=== PATIENT | female | born 1935 | race Caucasian/White ===

== ENCOUNTER 2017-08-23 20:39 | Inpatient (IN) | payer MEDICARE, MEDICAID ==
[~2017-08-23] VITALS: Ht 165.1 cm; Wt 70.3 kg
[2017-08-23] MEDS ORDERED: RISP.5 PO (20:46)
[2017-08-23] MEDS ORDERED: QUET25TA PO ×2 (20:46→20:54)
[2017-08-23] MEDS ORDERED: MEMA5 PO (20:46)
[2017-08-23] MEDS ORDERED: DSS100 PO (20:54)
[2017-08-23] MEDS ORDERED: TRAM50TA4 PO (20:54)
[2017-08-23] MEDS ORDERED: LORA0.5T2 PO (20:54)
[2017-08-23] MEDS ORDERED: QUET100T PO (20:54)
[2017-08-23] MEDS ORDERED: FERR-89 PO (20:54)
[2017-08-23] MEDS ORDERED: DICL2100G TP (20:54)
[2017-08-23] MEDS ORDERED: LOSA50TA37 PO (20:54)
[2017-08-23] MEDS ORDERED: PANT40TA25 PO (20:54)
[2017-08-23] MEDS ORDERED: CALC1TAB15 PO (20:54)
[2017-08-23] MEDS ORDERED: MELO-107 PO (20:54)
[2017-08-23] MEDS ORDERED: MEGE400O4 PO (20:54)
[2017-08-23] MEDS ORDERED: MELA3TAB PO (20:54)
[2017-08-23] MEDS ORDERED: ASCO500 PO (20:54)
[2017-08-23] MEDS ORDERED: ATEN50TA PO (20:54)
[2017-08-23] MEDS ORDERED: BACL10TA PO (20:54)
[2017-08-23 22:09] LABS: BASOPHILS % (AUTO) 0.9 % (0.0-2.0); EOSINOPHILS % (AUTO) 1.6 % (1.0-6.0); HEMATOCRIT 29.4 % (36-46); HEMOGLOBIN 10.1 g/dL (12.0-16.0); LYMPHOCYTES # (AUTO) 2.4 K/uL (1.0-4.8); LYMPHOCYTES % (AUTO) 42.8 % (22.0-44.0); MEAN CORPUSCULAR HEMOGLOBIN 31.5 pg (26.0-34.0); MEAN CORPUSCULAR HGB CONC 34.1 G/dL (31.0-37.0); MEAN CORPUSCULAR VOLUME 92 fL (80-100); MONOCYTES # (AUTO) 0.5 K/uL (0.1-1.0); NEUTROPHILS # (AUTO) 2.5 K/uL (1.8-7.7); NEUTROPHILS % (AUTO) 45.7 % (40.0-70.0); PLATELET COUNT (AUTO) 289 K/uL (150-450); RED BLOOD CELL COUNT(AUTO) 3.19 MIL/uL (4.00-5.20); RED CELL DISTRIBUTION WIDTH 16.2 % (11.5-14.5)
[2017-08-23 22:18] LABS: APPEARANCE,URINE CLOUDY (CLEAR); BILIRUBIN,URINE NEGATIVE (NEGATIVE); GLUCOSE, URINE (UA) NEGATIVE (NEGATIVE); KETONES,URINE NEGATIVE (NEGATIVE); LEUKOCYTE ESTERASE ,URINE TRACE (NEGATIVE); NITRATE,URINE NEGATIVE (NEGATIVE); OCCULT BLOOD,URINE NEGATIVE (NEGATIVE); PH,URINE 6.5 (5.0-8.0); PROTEIN,URINE NEGATIVE (NEGATIVE); UROBILINOGEN,URINE 0.2 mg/dL (<=1.0)
[2017-08-23 22:20] LABS: ANION GAP 6 mmol/L (8-16); CALCIUM, TOTAL 9.1 mg/dL (8.8-10.5); CARBON DIOXIDE 28 mmol/L (22-29); CHLORIDE 106 mmol/L (98-107); CREATININE 0.63 mg/dL (0.60-1.30); GLOMERULAR FILTR. RATE CALC > 60 mL/min (>60); GLUCOSE,RANDOM 115 mg/dL (70-110); POTASSIUM 4.2 mmol/L (3.5-5.1); SODIUM SERUM 140 mmol/L (136-145); UREA NITROGEN, BLOOD 34 mg/dL (7-18)
[2017-08-23 22:24] LABS: ALANINE AMINOTRANSFERASE 19 U/L (12-78); ALKALINE PHOSPHATASE 44 U/L (46-116); ASPARTATE AMINOTRANSFERASE 15 U/L (15-37); BILIRUBIN,TOTAL 0.2 mg/dL (0.1-1.0); TOTAL PROTEIN, SERUM 7.2 g/dL (6.4-8.2)
[2017-08-23] MEDS ORDERED: HALOPERIDOL 5 MG TABLET PO PRN (22:45)
[2017-08-23] MEDS ORDERED: ZOLPIDEM TARTRATE 10 MG TABLET PO PRN (22:45)
[2017-08-23 23:07] LABS: RBC,URINE 0-2 /HPF (0-2); WBC,URINE 0-2 /HPF (0-5)
[2017-08-23 23:08] LABS: BACTERIA,URINE Moderate /HPF (None Seen); SQUAMOUS EPITHELIAL CELL,UR Rare /LPF (None Seen)
[2017-08-23] MEDS ORDERED: LORazepam 2 MG/ML VIAL IVP ONE (23:15)
[2017-08-24 03:34] LABS: CHOLESTEROL 151 mg/dL (131-200); FREE T4 (FREE THYROXINE) 0.91 ng/dL (0.76-1.46); HDL CHOLESTEROL 38 mg/dL (40-60); LDL CHOL (CALC.) 97 mg/dL (0-130); THYROID STIMULATING HORMONE 3.11 uIU/mL (0.36-3.74); TRIGLYCERIDES 80 mg/dL (15-150)
[2017-08-24] MEDS: LORazepam 2 MG TABLET PO PRN ×2 (06:22→11:17)
[2017-08-24 19:58] VITALS: BP 150/96
[2017-08-24] MEDS ORDERED: PNEUMOCOCCAL VACCINE POLYVALENT 0.5 ML VIAL [PPSV23] IM ONE (20:00)
[2017-08-24] MEDS ORDERED: CloNIDine HCL 0.1 MG TABLET PO PRN (20:30)
[2017-08-24] MEDS ORDERED: IBUPROFEN 600 MG TABLET PO PRN (20:30)
[2017-08-24] MEDS ORDERED: ALBUTEROL SULFATE HFA 90 MCG/PUFF 8 GM INHALER IH PRN (20:30)
[2017-08-24] MEDS ORDERED: ONDANSETRON HCL 4 MG TABLET PO PRN (20:30)
[2017-08-24] MEDS ORDERED: MAG HYDROX/AL HYDROX/SIMETH ES 30 ML SUSPENSION UDCUP PO PRN (20:30)
[2017-08-24] MEDS ORDERED: PETROLATUM,WHITE 71 GM JELLY TP PRN (20:30)
[2017-08-24] MEDS ORDERED: BACITRACIN 28.4 GM OINTMENT TP PRN (20:30)
[2017-08-24] MEDS ORDERED: BENZOCAINE/MENTHOL LOZENGE MM PRN (20:30)
[2017-08-24] MEDS ORDERED: TraMADol HCL 50 MG TABLET PO PRN (20:30)
[2017-08-24] MEDS ORDERED: MAGNESIUM HYDROXIDE SUSPENSION 30 ML UDCUP PO PRN (20:30)
[2017-08-24] MEDS ORDERED: LOPERAMIDE HCL 2 MG CAPSULE PO PRN (20:30)
[2017-08-24] MEDS ORDERED: DICLOFENAC SODIUM 1% 100 GM GEL [2GM] TP SCH (21:00)
[2017-08-25] MEDS: FERROUS SULFATE 325 MG EC TABLET PO SCH ×2 (06:53→16:35)
[2017-08-25] MEDS ORDERED: MEMANTINE HCL 5 MG TABLET PO SCH (09:00)
[2017-08-25 09:57] VITALS: BP 143/80
[2017-08-25] MEDS: BACLOFEN 10 MG TABLET PO SCH ×2 (10:53→16:33)
[2017-08-25] MEDS: LORazepam 2 MG TABLET PO PRN (10:53)
[2017-08-25] MEDS: MELOXICAM 7.5 MG TABLET PO SCH (10:54)
[2017-08-25] MEDS: MEGESTROL ACETATE 400 MG/10 ML SUSPENSION UDCUP PO SCH (10:54)
[2017-08-25] MEDS: DOCUSATE SODIUM 100 MG CAPSULE PO SCH (10:54)
[2017-08-25] MEDS: CALCIUM OYSTER SHELL 500 MG TABLET PO SCH (10:55)
[2017-08-25] MEDS: ASCORBIC ACID 500 MG TABLET PO SCH ×2 (10:55→16:33)
[2017-08-25] MEDS: ATENOLOL 50 MG TABLET PO SCH (10:55)
[2017-08-25] MEDS: OMEPRAZOLE 20 MG CAPSULE PO SCH (10:56)
[2017-08-25] MEDS: DICLOFENAC SODIUM 1% 100 GM GEL [2GM] TP SCH ×4 (12:21→20:25)
[2017-08-25] MEDS: MEMANTINE HCL 10 MG TABLET PO SCH (16:32)
[2017-08-25] MEDS: RisperiDONE 1 MG TABLET PO SCH (16:34)
[2017-08-25] MEDS: ACETAMINOPHEN 325 MG TABLET PO PRN (16:44)
[2017-08-25 16:49] VITALS: BP 158/69
[2017-08-26 04:10] VITALS: BP 164/82
[2017-08-26] MEDS: MELOXICAM 7.5 MG TABLET PO SCH (07:10)
[2017-08-26] MEDS: FERROUS SULFATE 325 MG EC TABLET PO SCH ×2 (07:10→16:45)
[2017-08-26 08:00] VITALS: BP 145/75
[2017-08-26] MEDS: CALCIUM OYSTER SHELL 500 MG TABLET PO SCH (09:00)
[2017-08-26] MEDS: ATENOLOL 50 MG TABLET PO SCH (09:00)
[2017-08-26] MEDS: RisperiDONE 1 MG TABLET PO SCH ×2 (09:00→16:45)
[2017-08-26] MEDS: MEGESTROL ACETATE 400 MG/10 ML SUSPENSION UDCUP PO SCH (09:00)
[2017-08-26] MEDS: MEMANTINE HCL 10 MG TABLET PO SCH ×2 (09:00→16:45)
[2017-08-26] MEDS: BACLOFEN 10 MG TABLET PO SCH ×2 (09:00→16:45)
[2017-08-26] MEDS: OMEPRAZOLE 20 MG CAPSULE PO SCH (09:00)
[2017-08-26] MEDS: ASCORBIC ACID 500 MG TABLET PO SCH ×2 (09:00→16:45)
[2017-08-26] MEDS: MULTIVITAMINS WITH MINERALS, THERAPEUTIC TABLET PO SCH (09:00)
[2017-08-26] MEDS: DOCUSATE SODIUM 100 MG CAPSULE PO SCH (09:00)
[2017-08-26] MEDS: DICLOFENAC SODIUM 1% 100 GM GEL [2GM] TP SCH ×4 (09:00→20:13)
[2017-08-26 12:11] LABS: FOLATE SERUM 21.5 ng/mL (5.4-)
[2017-08-26 16:19] VITALS: BP 147/72
[2017-08-27] MEDS: FERROUS SULFATE 325 MG EC TABLET PO SCH ×2 (06:49→16:43)
[2017-08-27] MEDS: MELOXICAM 7.5 MG TABLET PO SCH (06:50)
[2017-08-27 08:27] VITALS: BP 165/72
[2017-08-27] MEDS: MULTIVITAMINS WITH MINERALS, THERAPEUTIC TABLET PO SCH (08:47)
[2017-08-27] MEDS: ATENOLOL 50 MG TABLET PO SCH (08:47)
[2017-08-27] MEDS: RisperiDONE 1 MG TABLET PO SCH ×2 (08:47→16:44)
[2017-08-27] MEDS: OMEPRAZOLE 20 MG CAPSULE PO SCH (08:47)
[2017-08-27] MEDS: DICLOFENAC SODIUM 1% 100 GM GEL [2GM] TP SCH ×4 (08:47→20:44)
[2017-08-27] MEDS: CALCIUM OYSTER SHELL 500 MG TABLET PO SCH (08:47)
[2017-08-27] MEDS: ASCORBIC ACID 500 MG TABLET PO SCH ×2 (08:47→16:43)
[2017-08-27] MEDS: MEMANTINE HCL 10 MG TABLET PO SCH ×2 (08:48→16:44)
[2017-08-27] MEDS: BACLOFEN 10 MG TABLET PO SCH ×2 (08:48→16:43)
[2017-08-27] MEDS: MEGESTROL ACETATE 400 MG/10 ML SUSPENSION UDCUP PO SCH (08:48)
[2017-08-27] MEDS: DOCUSATE SODIUM 100 MG CAPSULE PO SCH (08:48)
[2017-08-27 09:24] VITALS: BP 156/88
[2017-08-27 17:03] VITALS: BP 152/82
[2017-08-28] MEDS: ACETAMINOPHEN 325 MG TABLET PO PRN (06:01)
[2017-08-28 06:07] VITALS: BP 158/84
[2017-08-28] MEDS: FERROUS SULFATE 325 MG EC TABLET PO SCH ×3 (06:41→15:51)
[2017-08-28] MEDS: MELOXICAM 7.5 MG TABLET PO SCH ×2 (06:41→07:01)
[2017-08-28] MEDS: DICLOFENAC SODIUM 1% 100 GM GEL [2GM] TP SCH ×4 (09:00→22:07)
[2017-08-28 09:03] VITALS: BP 158/88
[2017-08-28] MEDS: BACLOFEN 10 MG TABLET PO SCH ×2 (09:06→15:45)
[2017-08-28] MEDS: RisperiDONE 1 MG TABLET PO SCH ×2 (09:07→15:46)
[2017-08-28] MEDS: ATENOLOL 50 MG TABLET PO SCH (09:07)
[2017-08-28] MEDS: MEMANTINE HCL 10 MG TABLET PO SCH ×2 (09:07→15:45)
[2017-08-28] MEDS: DOCUSATE SODIUM 100 MG CAPSULE PO SCH (12:52)
[2017-08-28] MEDS: MEGESTROL ACETATE 400 MG/10 ML SUSPENSION UDCUP PO SCH (12:52)
[2017-08-28] MEDS: CALCIUM OYSTER SHELL 500 MG TABLET PO SCH (12:52)
[2017-08-28] MEDS: OMEPRAZOLE 20 MG CAPSULE PO SCH (12:53)
[2017-08-28] MEDS: LOSARTAN POTASSIUM 25 MG TABLET PO SCH ×2 (12:53→15:45)
[2017-08-28] MEDS: MULTIVITAMINS WITH MINERALS, THERAPEUTIC TABLET PO SCH (12:53)
[2017-08-28] MEDS: ASCORBIC ACID 500 MG TABLET PO SCH ×2 (12:53→15:45)
[2017-08-28 16:08] VITALS: BP 147/88
[2017-08-29 06:59] LABS: % IRON SATURATION 16.1 % (22-44)
[2017-08-29] MEDS: FERROUS SULFATE 325 MG EC TABLET PO SCH ×3 (07:30→18:00)
[2017-08-29] MEDS: MELOXICAM 7.5 MG TABLET PO SCH (07:30)
[2017-08-29 07:45] VITALS: BP 142/84
[2017-08-29] MEDS: DOCUSATE SODIUM 100 MG CAPSULE PO SCH (09:00)
[2017-08-29] MEDS: MULTIVITAMINS WITH MINERALS, THERAPEUTIC TABLET PO SCH (09:00)
[2017-08-29] MEDS: CALCIUM OYSTER SHELL 500 MG TABLET PO SCH (09:00)
[2017-08-29] MEDS: ASCORBIC ACID 500 MG TABLET PO SCH ×3 (09:00→18:00)
[2017-08-29] MEDS: MEMANTINE HCL 10 MG TABLET PO SCH ×3 (09:00→18:00)
[2017-08-29] MEDS: ATENOLOL 50 MG TABLET PO SCH (09:00)
[2017-08-29] MEDS: RisperiDONE 1 MG TABLET PO SCH ×3 (09:00→18:00)
[2017-08-29] MEDS: DICLOFENAC SODIUM 1% 100 GM GEL [2GM] TP SCH ×4 (09:00→21:16)
[2017-08-29] MEDS: MEGESTROL ACETATE 400 MG/10 ML SUSPENSION UDCUP PO SCH ×2 (09:00→11:00)
[2017-08-29] MEDS: OMEPRAZOLE 20 MG CAPSULE PO SCH (09:00)
[2017-08-29] MEDS: BACLOFEN 10 MG TABLET PO SCH ×3 (09:00→18:00)
[2017-08-29] MEDS: LOSARTAN POTASSIUM 25 MG TABLET PO SCH ×3 (09:00→18:00)
[2017-08-29 17:59] VITALS: BP 147/82
[2017-08-30] MEDS: MELOXICAM 7.5 MG TABLET PO SCH (07:03)
[2017-08-30] MEDS: FERROUS SULFATE 325 MG EC TABLET PO SCH ×2 (07:03→17:23)
[2017-08-30] MEDS: OMEPRAZOLE 20 MG CAPSULE PO SCH (08:27)
[2017-08-30] MEDS: MEMANTINE HCL 10 MG TABLET PO SCH ×2 (08:27→17:23)
[2017-08-30 08:28] VITALS: BP 139/79
[2017-08-30] MEDS: LOSARTAN POTASSIUM 25 MG TABLET PO SCH ×2 (08:28→17:24)
[2017-08-30] MEDS: DOCUSATE SODIUM 100 MG CAPSULE PO SCH (08:28)
[2017-08-30] MEDS: CALCIUM OYSTER SHELL 500 MG TABLET PO SCH (08:28)
[2017-08-30] MEDS: BACLOFEN 10 MG TABLET PO SCH ×2 (08:28→17:24)
[2017-08-30] MEDS: MULTIVITAMINS WITH MINERALS, THERAPEUTIC TABLET PO SCH (08:29)
[2017-08-30] MEDS: ATENOLOL 50 MG TABLET PO SCH (08:29)
[2017-08-30] MEDS: RisperiDONE 1 MG TABLET PO SCH ×2 (08:29→17:26)
[2017-08-30] MEDS: ASCORBIC ACID 500 MG TABLET PO SCH ×2 (08:29→17:24)
[2017-08-30] MEDS: DICLOFENAC SODIUM 1% 100 GM GEL [2GM] TP SCH ×4 (12:59→20:43)
[2017-08-30 16:38] VITALS: BP 143/78
[2017-08-31 06:58] VITALS: BP 166/75
[2017-08-31] MEDS: MELOXICAM 7.5 MG TABLET PO SCH (07:10)
[2017-08-31] MEDS: FERROUS SULFATE 325 MG EC TABLET PO SCH ×2 (07:10→17:30)
[2017-08-31] MEDS: LOSARTAN POTASSIUM 25 MG TABLET PO SCH ×2 (08:49→17:00)
[2017-08-31] MEDS: DOCUSATE SODIUM 100 MG CAPSULE PO SCH (08:49)
[2017-08-31] MEDS: BACLOFEN 10 MG TABLET PO SCH ×2 (08:49→17:00)
[2017-08-31] MEDS: MEGESTROL ACETATE 400 MG/10 ML SUSPENSION UDCUP PO SCH (08:49)
[2017-08-31] MEDS: MEMANTINE HCL 10 MG TABLET PO SCH ×2 (08:50→17:00)
[2017-08-31] MEDS: RisperiDONE 2 MG TABLET PO SCH ×2 (08:50→17:00)
[2017-08-31] MEDS: OMEPRAZOLE 20 MG CAPSULE PO SCH (08:50)
[2017-08-31] MEDS: CALCIUM OYSTER SHELL 500 MG TABLET PO SCH (08:50)
[2017-08-31] MEDS: ATENOLOL 50 MG TABLET PO SCH (08:50)
[2017-08-31] MEDS: MULTIVITAMINS WITH MINERALS, THERAPEUTIC TABLET PO SCH (08:50)
[2017-08-31] MEDS: ASCORBIC ACID 500 MG TABLET PO SCH ×2 (08:50→17:00)
[2017-08-31] MEDS: DICLOFENAC SODIUM 1% 100 GM GEL [2GM] TP SCH ×4 (10:38→20:50)
[2017-08-31 12:18] VITALS: BP 155/84
[2017-08-31 17:12] VITALS: BP 138/82
[2017-09-01] MEDS: FERROUS SULFATE 325 MG EC TABLET PO SCH ×2 (07:13→16:04)
[2017-09-01] MEDS: MELOXICAM 7.5 MG TABLET PO SCH (07:13)
[2017-09-01 07:57] VITALS: BP 147/78
[2017-09-01 08:32] VITALS: BP 140/72
[2017-09-01] MEDS: MEMANTINE HCL 10 MG TABLET PO SCH ×2 (09:00→16:04)
[2017-09-01] MEDS: BACLOFEN 10 MG TABLET PO SCH ×2 (09:00→16:04)
[2017-09-01] MEDS: OMEPRAZOLE 20 MG CAPSULE PO SCH (09:00)
[2017-09-01] MEDS: MEGESTROL ACETATE 400 MG/10 ML SUSPENSION UDCUP PO SCH (09:00)
[2017-09-01] MEDS: ASCORBIC ACID 500 MG TABLET PO SCH ×2 (09:00→16:04)
[2017-09-01] MEDS: LOSARTAN POTASSIUM 25 MG TABLET PO SCH ×2 (09:00→16:04)
[2017-09-01] MEDS: DOCUSATE SODIUM 100 MG CAPSULE PO SCH (09:00)
[2017-09-01] MEDS: CALCIUM OYSTER SHELL 500 MG TABLET PO SCH (09:00)
[2017-09-01] MEDS: RisperiDONE 2 MG TABLET PO SCH ×2 (09:00→16:05)
[2017-09-01] MEDS: MULTIVITAMINS WITH MINERALS, THERAPEUTIC TABLET PO SCH (09:00)
[2017-09-01] MEDS: ATENOLOL 50 MG TABLET PO SCH (09:00)
[2017-09-01] MEDS: DICLOFENAC SODIUM 1% 100 GM GEL [2GM] TP SCH ×4 (13:58→20:18)
[2017-09-01 16:32] VITALS: BP 163/96
[2017-09-02] MEDS: FERROUS SULFATE 325 MG EC TABLET PO SCH ×2 (07:20→16:12)
[2017-09-02] MEDS: MELOXICAM 7.5 MG TABLET PO SCH (07:20)
[2017-09-02 07:44] VITALS: BP 154/91
[2017-09-02 08:30] VITALS: BP 138/88
[2017-09-02] MEDS: ATENOLOL 50 MG TABLET PO SCH (09:00)
[2017-09-02] MEDS: DICLOFENAC SODIUM 1% 100 GM GEL [2GM] TP SCH ×4 (09:00→20:12)
[2017-09-02] MEDS: MEMANTINE HCL 10 MG TABLET PO SCH ×2 (09:00→16:12)
[2017-09-02] MEDS: MULTIVITAMINS WITH MINERALS, THERAPEUTIC TABLET PO SCH (09:00)
[2017-09-02] MEDS: DOCUSATE SODIUM 100 MG CAPSULE PO SCH (09:00)
[2017-09-02] MEDS: RisperiDONE 2 MG TABLET PO SCH ×2 (09:00→16:13)
[2017-09-02] MEDS: ASCORBIC ACID 500 MG TABLET PO SCH ×2 (09:00→16:12)
[2017-09-02] MEDS: OMEPRAZOLE 20 MG CAPSULE PO SCH (09:00)
[2017-09-02] MEDS: BACLOFEN 10 MG TABLET PO SCH ×2 (09:00→16:12)
[2017-09-02] MEDS: CALCIUM OYSTER SHELL 500 MG TABLET PO SCH (09:00)
[2017-09-02] MEDS: LOSARTAN POTASSIUM 25 MG TABLET PO SCH ×2 (09:00→16:12)
[2017-09-02] MEDS: MEGESTROL ACETATE 400 MG/10 ML SUSPENSION UDCUP PO SCH (09:00)
[2017-09-02 18:23] VITALS: BP 140/87
[2017-09-03 07:01] VITALS: BP 129/71
[2017-09-03] MEDS: FERROUS SULFATE 325 MG EC TABLET PO SCH ×2 (07:27→16:58)
[2017-09-03] MEDS: MELOXICAM 7.5 MG TABLET PO SCH (07:27)
[2017-09-03] MEDS: MULTIVITAMINS WITH MINERALS, THERAPEUTIC TABLET PO SCH (09:00)
[2017-09-03] MEDS: RisperiDONE 2 MG TABLET PO SCH ×2 (09:45→16:58)
[2017-09-03] MEDS: MEMANTINE HCL 10 MG TABLET PO SCH ×2 (09:45→16:58)
[2017-09-03] MEDS: CALCIUM OYSTER SHELL 500 MG TABLET PO SCH (09:45)
[2017-09-03] MEDS: LORazepam 2 MG TABLET PO PRN (09:45)
[2017-09-03] MEDS: ASCORBIC ACID 500 MG TABLET PO SCH ×2 (09:45→16:58)
[2017-09-03] MEDS: ATENOLOL 50 MG TABLET PO SCH (09:45)
[2017-09-03] MEDS: BACLOFEN 10 MG TABLET PO SCH ×2 (09:45→16:58)
[2017-09-03] MEDS: MEGESTROL ACETATE 400 MG/10 ML SUSPENSION UDCUP PO SCH (09:46)
[2017-09-03] MEDS: DOCUSATE SODIUM 100 MG CAPSULE PO SCH (09:46)
[2017-09-03] MEDS: OMEPRAZOLE 20 MG CAPSULE PO SCH (09:46)
[2017-09-03] MEDS: LOSARTAN POTASSIUM 50 MG TABLET PO SCH ×2 (09:46→16:58)
[2017-09-03] MEDS: DICLOFENAC SODIUM 1% 100 GM GEL [2GM] TP SCH ×4 (09:47→20:04)
[2017-09-03 10:56] VITALS: BP 129/81
[2017-09-03 17:05] VITALS: BP 131/82
[2017-09-04 06:35] VITALS: BP 129/73
[2017-09-04] MEDS: MELOXICAM 7.5 MG TABLET PO SCH ×2 (06:46→07:00)
[2017-09-04] MEDS: FERROUS SULFATE 325 MG EC TABLET PO SCH ×3 (06:46→17:30)
[2017-09-04 08:13] VITALS: BP 121/58
[2017-09-04] MEDS: LOSARTAN POTASSIUM 50 MG TABLET PO SCH ×2 (09:00→16:47)
[2017-09-04] MEDS: ATENOLOL 50 MG TABLET PO SCH (09:00)
[2017-09-04] MEDS: CALCIUM OYSTER SHELL 500 MG TABLET PO SCH (09:00)
[2017-09-04] MEDS: DICLOFENAC SODIUM 1% 100 GM GEL [2GM] TP SCH ×4 (09:00→20:26)
[2017-09-04] MEDS: BACLOFEN 10 MG TABLET PO SCH ×2 (12:30→16:46)
[2017-09-04] MEDS: ASCORBIC ACID 500 MG TABLET PO SCH ×2 (12:30→16:47)
[2017-09-04] MEDS: MEGESTROL ACETATE 400 MG/10 ML SUSPENSION UDCUP PO SCH (12:30)
[2017-09-04] MEDS: RisperiDONE 2 MG TABLET PO SCH ×2 (12:30→16:46)
[2017-09-04] MEDS: MEMANTINE HCL 10 MG TABLET PO SCH ×2 (12:30→16:47)
[2017-09-04] MEDS: MULTIVITAMINS WITH MINERALS, THERAPEUTIC TABLET PO SCH (14:30)
[2017-09-04] MEDS: DOCUSATE SODIUM 100 MG CAPSULE PO SCH (14:30)
[2017-09-04] MEDS: OMEPRAZOLE 20 MG CAPSULE PO SCH (14:30)
[2017-09-04 17:01] VITALS: BP 123/68
[2017-09-05 05:53] VITALS: BP 127/65
[2017-09-05] MEDS: FERROUS SULFATE 325 MG EC TABLET PO SCH ×2 (06:37→17:24)
[2017-09-05] MEDS: MELOXICAM 7.5 MG TABLET PO SCH (06:37)
[2017-09-05 08:57] VITALS: BP 144/86
[2017-09-05] MEDS: RisperiDONE 2 MG TABLET PO SCH ×2 (09:44→17:24)
[2017-09-05] MEDS: MULTIVITAMINS WITH MINERALS, THERAPEUTIC TABLET PO SCH (09:44)
[2017-09-05] MEDS: OMEPRAZOLE 20 MG CAPSULE PO SCH (09:44)
[2017-09-05] MEDS: MEGESTROL ACETATE 400 MG/10 ML SUSPENSION UDCUP PO SCH (09:44)
[2017-09-05] MEDS: ATENOLOL 50 MG TABLET PO SCH (09:44)
[2017-09-05] MEDS: DOCUSATE SODIUM 100 MG CAPSULE PO SCH (09:45)
[2017-09-05] MEDS: MEMANTINE HCL 10 MG TABLET PO SCH ×2 (09:45→17:24)
[2017-09-05] MEDS: CALCIUM OYSTER SHELL 500 MG TABLET PO SCH (09:45)
[2017-09-05] MEDS: BACLOFEN 10 MG TABLET PO SCH ×2 (09:45→17:24)
[2017-09-05] MEDS: DICLOFENAC SODIUM 1% 100 GM GEL [2GM] TP SCH ×4 (09:46→20:07)
[2017-09-05] MEDS: LOSARTAN POTASSIUM 50 MG TABLET PO SCH ×2 (09:46→17:24)
[2017-09-05] MEDS: ASCORBIC ACID 500 MG TABLET PO SCH ×2 (09:46→17:24)
[2017-09-05 16:41] VITALS: BP 146/75
[2017-09-06 06:58] VITALS: BP 154/83
[2017-09-06] MEDS: FERROUS SULFATE 325 MG EC TABLET PO SCH ×2 (07:01→17:31)
[2017-09-06] MEDS: MELOXICAM 7.5 MG TABLET PO SCH (07:01)
[2017-09-06 09:00] VITALS: BP 151/79
[2017-09-06] MEDS: MEMANTINE HCL 10 MG TABLET PO SCH ×2 (09:00→17:31)
[2017-09-06] MEDS: LOSARTAN POTASSIUM 50 MG TABLET PO SCH ×2 (09:00→17:31)
[2017-09-06] MEDS: RisperiDONE 2 MG TABLET PO SCH ×2 (09:00→17:31)
[2017-09-06] MEDS: ATENOLOL 50 MG TABLET PO SCH (09:00)
[2017-09-06] MEDS: BACLOFEN 10 MG TABLET PO SCH ×2 (09:00→17:31)
[2017-09-06] MEDS: DOCUSATE SODIUM 100 MG CAPSULE PO SCH (09:00)
[2017-09-06] MEDS: DICLOFENAC SODIUM 1% 100 GM GEL [2GM] TP SCH ×4 (09:00→20:43)
[2017-09-06] MEDS: CALCIUM OYSTER SHELL 500 MG TABLET PO SCH (09:00)
[2017-09-06] MEDS: MULTIVITAMINS WITH MINERALS, THERAPEUTIC TABLET PO SCH (09:00)
[2017-09-06] MEDS: OMEPRAZOLE 20 MG CAPSULE PO SCH (09:00)
[2017-09-06] MEDS: MEGESTROL ACETATE 400 MG/10 ML SUSPENSION UDCUP PO SCH (09:00)
[2017-09-06] MEDS: ASCORBIC ACID 500 MG TABLET PO SCH ×2 (09:00→17:31)
[2017-09-06 18:09] VITALS: BP 152/82
[2017-09-06] MEDS ORDERED: DOCUSATE SODIUM 100 MG CAPSULE PO PRN (22:30)
[2017-09-07] MEDS: MELOXICAM 7.5 MG TABLET PO SCH (06:46)
[2017-09-07 06:48] VITALS: BP 139/79
[2017-09-07 08:00] VITALS: BP 157/80
[2017-09-07] MEDS ORDERED: LOSARTAN POTASSIUM 50 MG TABLET PO SCH (09:00)
[2017-09-07] MEDS ORDERED: MULTIVITAMINS WITH IRON TABLET PO SCH (09:00)
[2017-09-07] MEDS: MEMANTINE HCL 10 MG TABLET PO SCH ×2 (09:41→18:06)
[2017-09-07] MEDS: BACLOFEN 10 MG TABLET PO SCH ×2 (09:41→18:07)
[2017-09-07] MEDS: MEGESTROL ACETATE 400 MG/10 ML SUSPENSION UDCUP PO SCH (09:41)
[2017-09-07] MEDS: LOSARTAN POTASSIUM 25 MG TABLET PO SCH ×2 (09:42→18:08)
[2017-09-07] MEDS: DICLOFENAC SODIUM 1% 100 GM GEL [2GM] TP SCH ×4 (09:43→21:01)
[2017-09-07] MEDS: RisperiDONE 2 MG TABLET PO SCH (09:43)
[2017-09-07] MEDS: OMEPRAZOLE 20 MG CAPSULE PO SCH (09:43)
[2017-09-07 11:00] VITALS: BP 128/59
[2017-09-07 16:32] LABS: GLUCOMETER DEV NAME(LOC) 3EI B; GLUCOSE,POINT OF CARE 96 MG/DL (70-110)
[2017-09-07 16:46] LABS: BASOPHILS % (AUTO) 0.6 % (0.0-2.0); EOSINOPHILS % (AUTO) 0.8 % (1.0-6.0); HEMATOCRIT 31.2 % (36-46); HEMOGLOBIN 10.8 g/dL (12.0-16.0); LYMPHOCYTES # (AUTO) 1.8 K/uL (1.0-4.8); MEAN CORPUSCULAR HEMOGLOBIN 31.9 pg (26.0-34.0); MEAN CORPUSCULAR HGB CONC 34.7 G/dL (31.0-37.0); MEAN CORPUSCULAR VOLUME 92 fL (80-100); MONOCYTES # (AUTO) 0.4 K/uL (0.1-1.0); MONOCYTES % (AUTO) 9.9 % (2.0-9.0); NEUTROPHILS # (AUTO) 1.8 K/uL (1.8-7.7); NEUTROPHILS % (AUTO) 43.7 % (40.0-70.0); PLATELET COUNT (AUTO) 264 K/uL (150-450); RED BLOOD CELL COUNT(AUTO) 3.39 MIL/uL (4.00-5.20); RED CELL DISTRIBUTION WIDTH 15.3 % (11.5-14.5)
[2017-09-07 16:57] LABS: ANION GAP 6 mmol/L (8-16); CALCIUM, TOTAL 9.1 mg/dL (8.8-10.5); CARBON DIOXIDE 26 mmol/L (22-29); CHLORIDE 104 mmol/L (98-107); CREATININE 0.72 mg/dL (0.60-1.30); GLOMERULAR FILTR. RATE CALC > 60 mL/min (>60); GLUCOSE,RANDOM 97 mg/dL (70-110); POTASSIUM 4.4 mmol/L (3.5-5.1); SODIUM SERUM 136 mmol/L (136-145); UREA NITROGEN, BLOOD 19 mg/dL (7-18)
[2017-09-07 16:59] LABS: PROTHROMBIN TIME 10.7 SEC (9.4-11.6)
[2017-09-07 17:06] LABS: ALANINE AMINOTRANSFERASE 14 U/L (12-78); ALBUMIN 3.1 g/dL (3.4-5.0); ALKALINE PHOSPHATASE 48 U/L (46-116); ASPARTATE AMINOTRANSFERASE 15 U/L (15-37); BILIRUBIN,TOTAL 0.3 mg/dL (0.1-1.0); TOTAL PROTEIN, SERUM 7.5 g/dL (6.4-8.2)
[2017-09-07] MEDS ORDERED: MEMA10TA11 PO (18:14)
[2017-09-07] MEDS ORDERED: LOSA25TA21 PO (18:17)
[2017-09-07] MEDS ORDERED: OMEP20 PO (18:18)
[2017-09-07] MEDS ORDERED: MVITFE PO (18:23)
[2017-09-07] MEDS ORDERED: ATEN50TA PO (18:25)
[2017-09-07] MEDS ORDERED: RISP3 PO (18:33)
[2017-09-07 19:36] VITALS: BP 125/65
[2017-09-07] MEDS ORDERED: ATENOLOL 50 MG TABLET PO SCH (21:00)
[2017-09-08] MEDS ORDERED: RisperiDONE 3 MG TABLET PO SCH (09:00)
== END 2017-09-07 22:26 | disposition short-term general hospital (02) | DRG 885 ==
LOC: EMS 20:39 → 3EX 08-24 17:14
PROVIDERS: ADMIT Psychiatry & Neurology Psychiatry; ATTEND Psychiatry & Neurology Psychiatry
DX: F29 Unspecified psychosis not due to a substance or known physiological condition (principal); E44.0 Moderate protein-calorie malnutrition; G62.9 Polyneuropathy, unspecified; F02.80 Dementia in other diseases classified elsewhere, unspecified severity, without behavioral disturbance, psychotic disturbance, mood disturbance, and anxiety; G30.9 Alzheimer's disease, unspecified; N39.0 Urinary tract infection, site not specified; E78.00 Pure hypercholesterolemia, unspecified; F41.9 Anxiety disorder, unspecified; G47.00 Insomnia, unspecified; I10 Essential (primary) hypertension; K21.9 Gastro-esophageal reflux disease without esophagitis; M19.90 Unspecified osteoarthritis, unspecified site; Z53.29 Procedure and treatment not carried out because of patient's decision for other reasons; F32.9 Major depressive disorder, single episode, unspecified; Z79.899 Other long term (current) drug therapy; Z68.25 Body mass index [BMI] 25.0-25.9, adult; Z28.21 Immunization not carried out because of patient refusal
CPT/HCPCS: 70450; 82607; 82746; 83540; 83550; 84439; 84443; 87081; 87086; 93005; 96374; 99285; J2060

== ENCOUNTER 2017-09-07 22:20 | Inpatient (IN) | payer MEDICARE, OTHER ==
[~2017-09-07] VITALS: Ht 165.1 cm; Wt 54.3 kg
[~2017-09-07 22:20] MED LIST: ASCO500 PO; ATEN50TA PO; BACL10TA PO; CALC1TAB15 PO; DICL2100G TP; DSS100 PO; FERR-89 PO; LORA0.5T2 PO; LOSA25TA21 PO; LOSA50TA37 PO; MEGE400O4 PO; MELA3TAB PO; MELO-107 PO; MEMA10TA11 PO; MEMA5 PO; MVITFE PO; OMEP20 PO; PANT40TA25 PO; QUET100T PO; QUET25TA PO; RISP.5 PO; RISP3 PO; TRAM50TA4 PO
[2017-09-07 22:30] VITALS: BP 144/71
[2017-09-08 04:00] VITALS: BP 141/71
[2017-09-08] MEDS ORDERED: BISACODYL 10 MG RECTAL RECTAL SUPPOSITORY PR PRN (04:15)
[2017-09-08] MEDS ORDERED: IPRATROPIUM BROMIDE 0.5 MG/2.5 ML NEB SOLUTION NEB PRN (04:15)
[2017-09-08] MEDS ORDERED: MAGNESIUM HYDROXIDE SUSPENSION 30 ML UDCUP PO PRN (04:15)
[2017-09-08] MEDS ORDERED: ZOLPIDEM TARTRATE 5 MG TABLET PO PRN (04:15)
[2017-09-08] MEDS ORDERED: ACETAMINOPHEN 325 MG TABLET PO PRN (04:15)
[2017-09-08] MEDS ORDERED: HYDROCODONE/ACETAMINOPHEN 5-325 MG TABLET PO PRN (04:15)
[2017-09-08] MEDS ORDERED: ONDANSETRON HCL 4 MG/2 ML VIAL IVP PRN (04:15)
[2017-09-08] MEDS ORDERED: ALBUTEROL SULFATE 2.5 MG/0.5 ML NEB SOLUTION NEB PRN (04:15)
[2017-09-08] MEDS: DEXTROSE 5%-0.45% SODIUM CHL 1,000 ML IV SCH ×3 (05:01→23:42)
[2017-09-08 07:55] VITALS: BP 163/93
[2017-09-08] MEDS: HEPARIN SODIUM,PORCINE 5,000 UNITS/ML VIAL SQ SCH ×2 (08:02→20:23)
[2017-09-08] MEDS: MELOXICAM 7.5 MG TABLET PO SCH (08:03)
[2017-09-08] MEDS: MULTIVITAMINS WITH IRON TABLET PO SCH (08:03)
[2017-09-08] MEDS: PANTOPRAZOLE SODIUM 40 MG DR TABLET PO SCH (08:03)
[2017-09-08] MEDS: MEMANTINE HCL 10 MG TABLET PO SCH ×2 (08:04→20:22)
[2017-09-08] MEDS: RisperiDONE 3 MG TABLET PO SCH ×2 (08:04→20:22)
[2017-09-08] MEDS: MEGESTROL ACETATE 400 MG/10 ML SUSPENSION UDCUP PO SCH (08:04)
[2017-09-08] MEDS: LOSARTAN POTASSIUM 25 MG TABLET PO SCH ×2 (08:05→20:23)
[2017-09-08 11:00] VITALS: BP 146/82
[2017-09-08 14:53] VITALS: BP 159/81
[2017-09-08 19:41] VITALS: BP 140/63
[2017-09-08] MEDS: ATENOLOL 50 MG TABLET PO SCH (20:23)
[2017-09-08 23:12] VITALS: BP 116/63
[2017-09-09] VITALS (7 sets, daily range): BP systolic 107–143; BP diastolic 57–74
[2017-09-09 06:56] LABS: BASOPHILS % (AUTO) 0.4 % (0.0-2.0); EOSINOPHILS % (AUTO) 0.8 % (1.0-6.0); HEMATOCRIT 30.4 % (36-46); HEMOGLOBIN 10.6 g/dL (12.0-16.0); LYMPHOCYTES % (AUTO) 42.5 % (22.0-44.0); MEAN CORPUSCULAR HEMOGLOBIN 32.2 pg (26.0-34.0); MEAN CORPUSCULAR HGB CONC 34.9 G/dL (31.0-37.0); MEAN CORPUSCULAR VOLUME 92 fL (80-100); MONOCYTES # (AUTO) 0.4 K/uL (0.1-1.0); MONOCYTES % (AUTO) 8.2 % (2.0-9.0); NEUTROPHILS # (AUTO) 2.2 K/uL (1.8-7.7); NEUTROPHILS % (AUTO) 48.1 % (40.0-70.0); PLATELET COUNT (AUTO) 286 K/uL (150-450)
[2017-09-09 07:26] LABS: ALANINE AMINOTRANSFERASE 13 U/L (12-78); ALBUMIN 2.9 g/dL (3.4-5.0); ALKALINE PHOSPHATASE 41 U/L (46-116); ANION GAP 5 mmol/L (8-16); ASPARTATE AMINOTRANSFERASE 13 U/L (15-37); BILIRUBIN,TOTAL 0.2 mg/dL (0.1-1.0); CALCIUM, TOTAL 8.9 mg/dL (8.8-10.5); CARBON DIOXIDE 29 mmol/L (22-29); CHLORIDE 105 mmol/L (98-107); CREATININE 0.52 mg/dL (0.60-1.30); GLOMERULAR FILTR. RATE CALC > 60 mL/min (>60); GLUCOSE,RANDOM 94 mg/dL (70-110); PHOSPHORUS 3.2 mg/dL (2.5-4.9); SODIUM SERUM 139 mmol/L (136-145); TOTAL PROTEIN, SERUM 7.1 g/dL (6.4-8.2); UREA NITROGEN, BLOOD 14 mg/dL (7-18)
[2017-09-09] MEDS ORDERED: MAGNESIUM SULFATE 2 GM in DEXTROSE 5%-WATER 50 ML IV ONE (08:00)
[2017-09-09] MEDS: MEGESTROL ACETATE 400 MG/10 ML SUSPENSION UDCUP PO SCH (08:20)
[2017-09-09] MEDS: MEMANTINE HCL 10 MG TABLET PO SCH ×2 (08:21→20:27)
[2017-09-09] MEDS: HEPARIN SODIUM,PORCINE 5,000 UNITS/ML VIAL SQ SCH ×2 (08:21→21:00)
[2017-09-09] MEDS: LOSARTAN POTASSIUM 25 MG TABLET PO SCH ×2 (08:21→20:27)
[2017-09-09] MEDS: MULTIVITAMINS WITH IRON TABLET PO SCH (08:22)
[2017-09-09] MEDS: RisperiDONE 3 MG TABLET PO SCH ×2 (08:22→20:28)
[2017-09-09] MEDS: MELOXICAM 7.5 MG TABLET PO SCH (08:22)
[2017-09-09] MEDS: PANTOPRAZOLE SODIUM 40 MG DR TABLET PO SCH (08:22)
[2017-09-09] MEDS ORDERED: HEPA500018 SQ (10:47)
[2017-09-09] MEDS ORDERED: PANT40TA25 PO (10:53)
[2017-09-09] MEDS ORDERED: ACET-784 PO (10:55)
[2017-09-09] MEDS ORDERED: AUD NEB (10:57)
[2017-09-09] MEDS ORDERED: BISA10S PR (10:58)
[2017-09-09] MEDS ORDERED: IPRNEB IH (10:59)
[2017-09-09] MEDS ORDERED: HYDR-4061 PO (10:59)
[2017-09-09] MEDS ORDERED: MOM30 PO (11:00)
[2017-09-09] MEDS ORDERED: ZOLP5 PO (11:01)
[2017-09-09] MEDS: ATENOLOL 50 MG TABLET PO SCH (20:27)
[2017-09-10 04:00] VITALS: BP 139/67
[2017-09-10 07:32] VITALS: BP 157/82
[2017-09-10] MEDS: MELOXICAM 7.5 MG TABLET PO SCH (08:22)
[2017-09-10] MEDS: LOSARTAN POTASSIUM 25 MG TABLET PO SCH ×2 (08:22→21:00)
[2017-09-10] MEDS: HEPARIN SODIUM,PORCINE 5,000 UNITS/ML VIAL SQ SCH ×2 (08:22→21:01)
[2017-09-10] MEDS: MEMANTINE HCL 10 MG TABLET PO SCH ×2 (08:22→21:01)
[2017-09-10] MEDS: PANTOPRAZOLE SODIUM 40 MG DR TABLET PO SCH (08:22)
[2017-09-10] MEDS: MULTIVITAMINS WITH IRON TABLET PO SCH (08:22)
[2017-09-10] MEDS: MEGESTROL ACETATE 400 MG/10 ML SUSPENSION UDCUP PO SCH (08:22)
[2017-09-10] MEDS: RisperiDONE 3 MG TABLET PO SCH ×2 (08:23→21:01)
[2017-09-10 11:21] VITALS: BP 158/77
[2017-09-10 16:07] VITALS: BP 146/77
[2017-09-10 19:30] VITALS: BP 106/61
[2017-09-10] MEDS: ATENOLOL 50 MG TABLET PO SCH (21:00)
[2017-09-11] VITALS (7 sets, daily range): BP systolic 109–149; BP diastolic 64–78
[2017-09-11] MEDS: PANTOPRAZOLE SODIUM 40 MG DR TABLET PO SCH (08:16)
[2017-09-11] MEDS: MEMANTINE HCL 10 MG TABLET PO SCH ×2 (08:17→21:14)
[2017-09-11] MEDS: RisperiDONE 3 MG TABLET PO SCH ×2 (08:17→21:14)
[2017-09-11] MEDS: LOSARTAN POTASSIUM 25 MG TABLET PO SCH ×2 (08:17→21:14)
[2017-09-11] MEDS: MELOXICAM 7.5 MG TABLET PO SCH (08:26)
[2017-09-11] MEDS: MEGESTROL ACETATE 400 MG/10 ML SUSPENSION UDCUP PO SCH (08:27)
[2017-09-11] MEDS: HEPARIN SODIUM,PORCINE 5,000 UNITS/ML VIAL SQ SCH ×2 (08:27→21:14)
[2017-09-11] MEDS: MULTIVITAMINS WITH IRON TABLET PO SCH (08:27)
[2017-09-11] MEDS: ATENOLOL 50 MG TABLET PO SCH (21:14)
[2017-09-12 04:55] VITALS: BP 110/59
[2017-09-12 08:38] VITALS: BP 137/83
[2017-09-12] MEDS: MEGESTROL ACETATE 400 MG/10 ML SUSPENSION UDCUP PO SCH (08:42)
[2017-09-12] MEDS: MELOXICAM 7.5 MG TABLET PO SCH (08:42)
[2017-09-12] MEDS: RisperiDONE 3 MG TABLET PO SCH ×2 (08:42→23:30)
[2017-09-12] MEDS: MULTIVITAMINS WITH IRON TABLET PO SCH (08:42)
[2017-09-12] MEDS: MEMANTINE HCL 10 MG TABLET PO SCH ×2 (08:42→23:30)
[2017-09-12] MEDS: HEPARIN SODIUM,PORCINE 5,000 UNITS/ML VIAL SQ SCH ×2 (08:42→20:43)
[2017-09-12] MEDS: PANTOPRAZOLE SODIUM 40 MG DR TABLET PO SCH (08:43)
[2017-09-12] MEDS: LOSARTAN POTASSIUM 25 MG TABLET PO SCH ×2 (08:44→23:30)
[2017-09-12 12:05] VITALS: BP 132/78
[2017-09-12 18:25] VITALS: BP 130/65
[2017-09-12 20:00] VITALS: BP 128/64
[2017-09-12] MEDS: ATENOLOL 50 MG TABLET PO SCH (23:30)
[2017-09-12] MEDS: MAGNESIUM OXIDE 400 MG TABLET PO SCH (23:30)
[2017-09-12 23:33] VITALS: BP 117/80
[2017-09-13] VITALS (8 sets, daily range): BP systolic 106–143; BP diastolic 55–71
[2017-09-13] MEDS: RisperiDONE 3 MG TABLET PO SCH (09:00)
[2017-09-13] MEDS: LOSARTAN POTASSIUM 25 MG TABLET PO SCH ×2 (12:06→20:31)
[2017-09-13] MEDS: MULTIVITAMINS WITH IRON TABLET PO SCH (12:06)
[2017-09-13] MEDS: MEMANTINE HCL 10 MG TABLET PO SCH ×2 (12:07→21:52)
[2017-09-13] MEDS: MELOXICAM 7.5 MG TABLET PO SCH (12:07)
[2017-09-13] MEDS: PANTOPRAZOLE SODIUM 40 MG DR TABLET PO SCH (12:07)
[2017-09-13] MEDS: MAGNESIUM OXIDE 400 MG TABLET PO SCH ×2 (12:08→20:31)
[2017-09-13] MEDS: MEGESTROL ACETATE 400 MG/10 ML SUSPENSION UDCUP PO SCH (12:08)
[2017-09-13] MEDS: HEPARIN SODIUM,PORCINE 5,000 UNITS/ML VIAL SQ SCH ×2 (12:09→21:52)
[2017-09-13] MEDS: RisperiDONE 1 MG TABLET PO SCH (20:31)
[2017-09-13] MEDS: ATENOLOL 50 MG TABLET PO SCH (21:52)
[2017-09-14 04:34] VITALS: BP 125/61
[2017-09-14] MEDS: MELOXICAM 7.5 MG TABLET PO SCH (08:00)
[2017-09-14 08:43] VITALS: BP 129/79
[2017-09-14] MEDS: MEMANTINE HCL 10 MG TABLET PO SCH (09:00)
[2017-09-14] MEDS: RisperiDONE 1 MG TABLET PO SCH (09:00)
[2017-09-14] MEDS: PANTOPRAZOLE SODIUM 40 MG DR TABLET PO SCH (09:00)
[2017-09-14] MEDS: LOSARTAN POTASSIUM 25 MG TABLET PO SCH (09:00)
[2017-09-14] MEDS: MAGNESIUM OXIDE 400 MG TABLET PO SCH (09:00)
[2017-09-14] MEDS: MULTIVITAMINS WITH IRON TABLET PO SCH (09:00)
[2017-09-14] MEDS: MEGESTROL ACETATE 400 MG/10 ML SUSPENSION UDCUP PO SCH (11:20)
[2017-09-14] MEDS: HEPARIN SODIUM,PORCINE 5,000 UNITS/ML VIAL SQ SCH (11:22)
[2017-09-14 14:06] VITALS: BP 116/68
[2017-09-14 15:41] VITALS: BP 139/61
== END 2017-09-14 19:25 | DRG 71 ==
LOC: 5S 22:20 → 6N 09-11 15:31
PROVIDERS: ADMIT Internal Medicine; ATTEND Internal Medicine
DX: G93.40 Encephalopathy, unspecified (principal); E44.0 Moderate protein-calorie malnutrition; D64.9 Anemia, unspecified; F02.81 Dementia in other diseases classified elsewhere, unspecified severity, with behavioral disturbance; Z68.1 Body mass index [BMI] 19.9 or less, adult; G30.9 Alzheimer's disease, unspecified; K21.9 Gastro-esophageal reflux disease without esophagitis; I10 Essential (primary) hypertension; F41.9 Anxiety disorder, unspecified; M19.90 Unspecified osteoarthritis, unspecified site; G47.00 Insomnia, unspecified; F29 Unspecified psychosis not due to a substance or known physiological condition; Z91.14 Patient's other noncompliance with medication regimen; Z79.899 Other long term (current) drug therapy
CPT/HCPCS: 83036; 83735; 84100; 86592; 97112; 97161; 97164; 97167; 97530; J1644; J3475; J7060

== ENCOUNTER 2017-09-20 02:06 | Emergency (ER) | payer MEDICARE, OTHER ==
[~2017-09-20] VITALS: Ht 162.6 cm; Wt 54.1 kg
[~2017-09-20 02:06] MED LIST changes: +ACET-784 PO; -ASCO500 PO; +AUD NEB; +BISA10S PR; -CALC1TAB15 PO; -DSS100 PO; -FERR-89 PO; +HEPA500018 SQ; +HYDR-4061 PO; +IPRNEB IH; -LORA0.5T2 PO; -LOSA50TA37 PO; -MELA3TAB PO; -MEMA5 PO; +MOM30 PO; -OMEP20 PO; -QUET100T PO; -QUET25TA PO; -RISP.5 PO; +ZOLP5 PO
[2017-09-20] MEDS ORDERED: BACTDSB PO (02:32)
[2017-09-20 03:39] LABS: BASOPHILS % (AUTO) 0.9 % (0.0-2.0); EOSINOPHILS % (AUTO) 0.9 % (1.0-6.0); HEMATOCRIT 31.8 % (36-46); HEMOGLOBIN 11.1 g/dL (12.0-16.0); LYMPHOCYTES # (AUTO) 1.6 K/uL (1.0-4.8); LYMPHOCYTES % (AUTO) 26.7 % (22.0-44.0); MEAN CORPUSCULAR HEMOGLOBIN 32.1 pg (26.0-34.0); MEAN CORPUSCULAR HGB CONC 34.9 G/dL (31.0-37.0); MEAN CORPUSCULAR VOLUME 92 fL (80-100); MONOCYTES # (AUTO) 0.7 K/uL (0.1-1.0); MONOCYTES % (AUTO) 11.7 % (2.0-9.0); NEUTROPHILS # (AUTO) 3.7 K/uL (1.8-7.7); NEUTROPHILS % (AUTO) 59.8 % (40.0-70.0); PLATELET COUNT (AUTO) 321 K/uL (150-450); RED BLOOD CELL COUNT(AUTO) 3.46 MIL/uL (4.00-5.20)
[2017-09-20 03:48] LABS: ANION GAP 7 mmol/L (8-16); CALCIUM, TOTAL 9.3 mg/dL (8.8-10.5); CARBON DIOXIDE 26 mmol/L (22-29); CHLORIDE 102 mmol/L (98-107); CREATININE 0.54 mg/dL (0.60-1.30); GLOMERULAR FILTR. RATE CALC > 60 mL/min (>60); GLUCOSE,RANDOM 79 mg/dL (70-110); POTASSIUM 4.3 mmol/L (3.5-5.1); SODIUM SERUM 135 mmol/L (136-145); UREA NITROGEN, BLOOD 25 mg/dL (7-18)
[2017-09-20 03:54] LABS: ALANINE AMINOTRANSFERASE 20 U/L (12-78); ALBUMIN 3.1 g/dL (3.4-5.0); ALKALINE PHOSPHATASE 45 U/L (46-116); ASPARTATE AMINOTRANSFERASE 14 U/L (15-37); BILIRUBIN,TOTAL 0.2 mg/dL (0.1-1.0); TOTAL PROTEIN, SERUM 7.5 g/dL (6.4-8.2)
[2017-09-20 07:45] VITALS: BP 169/70
== END 2017-09-20 07:46 | disposition home or self-care (01) ==
LOC: EMS 02:06
DX: G30.9 Alzheimer's disease, unspecified (principal); F02.80 Dementia in other diseases classified elsewhere, unspecified severity, without behavioral disturbance, psychotic disturbance, mood disturbance, and anxiety; E78.00 Pure hypercholesterolemia, unspecified; F32.9 Major depressive disorder, single episode, unspecified; K21.9 Gastro-esophageal reflux disease without esophagitis
CPT/HCPCS: 36415; 80053; 85025; 99284; G0480